=== PATIENT | male | born 1960 | race Hispanic/Latino ===

== ENCOUNTER 2020-02-09 18:07 | Emergency (ER) | payer OTHER ==
[~2020-02-09] VITALS: Ht 167.6 cm; Wt 99.6 kg
[2020-02-09] MEDS ORDERED: DOXYCYCLINE HY100 MG PO (18:43)
[2020-02-09] MEDS ORDERED: CLINDAMYCIN HC300 MG PO (18:43)
[2020-02-09] MEDS ORDERED: CLINDAMYCIN PHOS 600 MG/ 4 ML VIAL IM ONE (18:45)
[2020-02-09] MEDS ORDERED: CLINDAMYCIN PHOS 600 MG/ 4 ML VIAL ONE (19:02)
== END 2020-02-09 19:35 | disposition home or self-care (01) ==
LOC: FSED 18:27
DX: L03.114 Cellulitis of left upper limb (principal); I10 Essential (primary) hypertension; E78.5 Hyperlipidemia, unspecified
CPT/HCPCS: 99282